=== PATIENT | female | born 1985 | race African-American/Black ===

== ENCOUNTER 2018-01-27 10:44 | Emergency (ER) | payer OTHER ==
[~2018-01-27] VITALS: Ht 165.1 cm; Wt 75.8 kg
[2018-01-27] MEDS ORDERED: CIPROFLOXIN HC2.5 M1 OPHTHALMIC (11:43)
== END 2018-01-27 11:59 | disposition home or self-care (01) ==
LOC: ER 10:44
DX: H10.89 Other conjunctivitis (principal); R51 Headache; Z90.89 Acquired absence of other organs; Z88.1 Allergy status to other antibiotic agents; Z88.8 Allergy status to other drugs, medicaments and biological substances